=== PATIENT | female | born 1945 | race Caucasian/White ===

== ENCOUNTER 2017-07-17 11:30 | Outpatient (CLI) | payer OTHER | END 2017-07-17 12:00 | disposition home or self-care (01) | LOC: NUCLEAR 11:30 | DX: M81.0 Age-related osteoporosis without current pathological fracture (principal) ==

== ENCOUNTER 2018-06-04 12:22 | Outpatient (CLI) | payer OTHER | END 2018-06-04 14:27 | disposition home or self-care (01) | LOC: MAMO-SONO 12:22 | DX: Z12.31 Encounter for screening mammogram for malignant neoplasm of breast (principal); Z87.898 Personal history of other specified conditions; N64.89 Other specified disorders of breast ==

== ENCOUNTER → 2019-02-20 | Outpatient (CLI) | payer OTHER | END | disposition home or self-care (01) | LOC: RAD 12:29 | DX: M77.32 Calcaneal spur, left foot (principal) ==

== ENCOUNTER 2019-07-09 14:40 | Outpatient (CLI) | payer OTHER | END 2019-07-09 14:48 | disposition home or self-care (01) | LOC: MAMO-SONO 14:40 | DX: Z12.31 Encounter for screening mammogram for malignant neoplasm of breast (principal); Z87.898 Personal history of other specified conditions ==